=== PATIENT | female | born 1980 ===

== ENCOUNTER 2018-10-20 10:20 | Outpatient (CLI) | payer MEDICAID | END 2018-10-20 10:21 | disposition home or self-care (01) | LOC: C.LAB 10:20 | DX: Z36.0 Encounter for antenatal screening for chromosomal anomalies (principal); Z11.9 Encounter for screening for infectious and parasitic diseases, unspecified; Z11.8 Encounter for screening for other infectious and parasitic diseases; Z3A.00 Weeks of gestation of pregnancy not specified ==